=== PATIENT | female | born 1995 | race Caucasian/White ===

== ENCOUNTER 2018-06-11 14:53 | Emergency (ER) | payer OTHER ==
[~2018-06-11] VITALS: Ht 152.4 cm; Wt 77.1 kg
[2018-06-11] MEDS ORDERED: VITAMIN D250000 UNIT PO (15:29)
[2018-06-11] MEDS ORDERED: SPIRONOLACTONE100 M1 PO (15:29)
[2018-06-11 16:06] LABS: ABSOLUTE BASOPHIL COUNT 0 /CUMM (0.0-0.2); ABSOLUTE EOSINOPHIL COUNT 0 /CUMM (0.0-0.7); ABSOLUTE GRANULOCYTE CT 15.1 /CUMM (1.4-6.5); ABSOLUTE LYMPH COUNT 0.7 /CUMM (1.2-3.4); ABSOLUTE MONOCYTE COUNT 0.7 /CUMM (0.10-0.60); BASOPHIL % 0 % (0.0-2.0); EOSINOPHIL % 0 % (0-5); HEMATOCRIT 44.8 % (37-47); MEAN CORPUSCULAR HGB 29.4 PG (27.0-31.0); MEAN CORPUSCULAR HGB CONC 34.2 G/DL (33.0-37.0); MEAN CORPUSCULAR VOLUME 86.2 FL (81.0-99.0); MEAN PLATELET VOLUME 8.5 FL (7.4-10.4); PLATELET COUNT 364 /CUMM (130-400); RBC DISTRIBUTION WIDTH 12.8 % (11.5-14.5); WHITE BLOOD CELL COUNT 16.5 /CUMM (4.8-10.8)
[2018-06-11 16:10] LABS: GRANULOCYTE % 91.5 % (42.2-75.2)
--- NOTE | 2018-06-11 17:07 | CT SCAN REPORT ---
EXAMINATION: CT ABDOMEN AND PELVIS WITHOUT CONTRAST CLINICAL INFORMATION: Left flank pain. Fever. COMPARISON: None TECHNIQUE: Multidetector volumetric imaging was performed from the superior aspect of the liver through the pubic symphysis. Sagittal and coronal reformatted images were obtained on the technologist's workstation. DLP: 471 mGy-cm FINDINGS: LUNG BASES: The visualized lung bases are unremarkable. LIVER, GALLBLADDER, AND BILIARY TREE: The liver is normal in size, shape, and attenuation. No focal hepatic lesion or biliary ductal dilatation is present. The gallbladder is unremarkable with no evidence of radiopaque gallstones, gallbladder wall thickening, or obvious pericholecystic inflammatory changes. PANCREAS: Unremarkable. SPLEEN: Unremarkable. ADRENAL GLANDS: Unremarkable. KIDNEYS AND URETERS: No hydronephrosis. No renal or ureteral calculi demonstrated. Slightly malrotated right kidney, with the right hilum facing anteriorly. No suspicious renal mass. No perinephric stranding. BLADDER: Unremarkable. GASTROINTESTINAL TRACT: Bowel gas pattern is nonobstructive. No evidence of acute bowel inflammation. The appendix is unremarkable. ABDOMINAL WALL: No significant hernia is appreciated. LYMPH NODES: Normal. VASCULAR: Unremarkable. PELVIC VISCERA: No free pelvic fluid. There is a 5.7 x 3.9 cm hypodense left adnexal structure measuring simple fluid density, suspected to represent a left ovarian cyst. OSSEOUS STRUCTURES: No acute osseous abnormalities. IMPRESSION: 1. No genitourinary calculi. No hydronephrosis. 2. A 5.7 x 3.9 cm left adnexal cystic lesion. No evidence of suspicious features on this noncontrast CT scan. Consider pelvic ultrasound follow-up.
--- NOTE | 2018-06-11 19:44 | ULTRASOUND REPORT ---
EXAMINATION: US PELVIS, TRANSABDOMINAL. CLINICAL INFORMATION: Left flank pain. Fever. COMPARISON: CT abdomen pelvis 06/11/2018 TECHNIQUE: Transabdominal ultrasound performed. Patient declined endovaginal exam. FINDINGS: Uterus is normally anteverted and normal in size measuring 7.4 x 3.6 x 4.3 cm. The estimated uterine volume 60 cc. Cervical length 3 cm. Endometrial echo complex normal in thickness measuring 0.5 cm. Left ovary: There is a 5 cm relatively thin-walled anechoic cyst in the left adnexa. This is likely ovarian in etiology with a thin rim of ovarian tissue noted superiorly. Normal vascular flow is noted within left ovarian tissue in left adnexa with arterial and venous waveforms demonstrated. No evidence for torsion. No evidence for tubo-ovarian abscess. Left ovarian size is estimated at 5.5 x 4.9 x 5.1 cm, for a calculated volume of 72 mL's, including a large cyst. The right ovary is normal in appearance measuring 3.9 x 1.5 x 2.8 cm, with a calculated volume of 8.5 mL. No free fluid. IMPRESSION: 1. A large left ovarian cyst is reidentified. 2. No convincing evidence of left ovarian torsion on transabdominal exam.
[2018-06-11 20:00] VITALS: BP 114/64
--- NOTE | 2018-06-11 20:11 | ED GI/GU/ABDOMINAL COMPLAINT ---
History of Present Illness General Chief Complaint: Abdominal Pain/Flank Pain Stated Complaint: L SIDED FLANK PAIN Source: patient Exam Limitations: no limitations Vital Signs & Intake/Output Vital Signs & Intake/Output Vital Signs Date Time Temp Pulse Resp B/P B/P Pulse O2 O2 Flow FiO2 Mean Ox Delivery Rate 06/11 2000 99.2 102 18 114/64 100 Room Air 06/11 1925 Room Air 06/11 1526 101.4 126 20 138/85 98 Room Air Allergies Uncoded Allergies: Allergy Other NKA Med Allergies NKDA Reconcile Medications Ergocalciferol (Vitamin D2) (Vitamin D2) 50,000 UNIT CAPSULE 1 CAP PO QW VITAMIN SUPPORT (Reported) Spironolactone 100 MG TABLET 1 TAB PO DAILY VITAMIN SUPPORT (Reported) Triage Note: PT HERE WITH C/O LEFT FLANK X 3 DAYS. PT REPORTS BEING NAUSEOUS TODAY AND PAIN WITH URINATION. REPORTS THAT URINE IS CLOUDY. Triage Nurses Notes Reviewed? yes LMP (ages 10-50): unknown ? n Is pt currently ? No Onset: Abrupt Duration: day(s): (2), constant, continues in ED, getting worse Timing: single episode today Quality/Severity: cramping Severity Numbers: 6 Location: left flank, right flank Radiation: no radiation Activities at Onset: none Prior Abdominal Problems: none Past Sexual History: Unobtainable at this time HPI: 23-year-old female history of PCO S presents for evaluation of bilateral flank pain fever congestion sore throat and body aches. Patient reports symptoms started 2 days ago with flank pain have gradually gotten worse. The pain is located in both flanks described as cramping does not radiate. She does report she feels like the flank pain gets worse when she urinates and reports cloudy urine. No frequency or urgency no dysuria. No vaginal discharge or vaginal bleeding. No abdominal pain chest pain cough or shortness of breath. No rashes. No sick contacts or recent travel no nausea vomiting or diarrhea. She is not taking any medicine for symptoms. (Clifford Richardson) Past History Travel History Traveled to [place] past 21 day No Medical History Any Pertinent Medical History? 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 No (Clifford Richardson) Review of Systems Review of Systems Constitutional: Reports: no symptoms. EENTM: Reports: no symptoms. Respiratory: Reports: no symptoms. Cardiovascular: Reports: no symptoms. GI: Reports: see HPI, abdominal pain (flank pain). Genitourinary: Reports: see HPI. Musculoskeletal: Reports: see HPI, back pain. Skin: Reports: no symptoms. Neurological/Psychological: Reports: no symptoms. Hematologic/Endocrine: Reports: no symptoms. Immunologic/Allergic: Reports: no symptoms. All Other Systems: Reviewed and Negative (Clifford Richardson) Physical Exam Physical Exam General Appearance: well developed/nourished, no apparent distress, alert, awake Head: atraumatic, normal appearance Eyes: Bilateral: normal appearance, PERRL, EOMI. Ears, Nose, Throat, Mouth: moist mucous membrane, Tympanic normal, no tonsilar swelling erythema or exudate no lad Neck: normal inspection, supple, full range of motion Respiratory: normal breath sounds, chest non-tender, no respiratory distress, lungs clear Cardiovascular: regular rate/rhythm, normal peripheral pulses Peripheral Pulses: 2+ radial (R), 2+ radial (L) Gastrointestinal: normal bowel sounds, soft, non-tender, no organomegaly Back: normal inspection, normal range of motion, lumbar paraspinous muscles are tender bilaterally. no cvat no midline pain. no rashes Extremities: normal range of motion Neurologic/Psych: no motor/sensory deficits, awake, alert, oriented x 3, normal gait, normal mood/affect Skin: intact, normal color, warm/dry Core Measures ACS in differential dx? No Sepsis Present: No Sepsis Focused Exam Completed? No (Clifford Richardson) Progress Differential Diagnosis: appendicitis, biliary colic, cholecystitis, ectopic , gastritis, kidney stone, ovarian cyst, ovarian torsion, pancreatitis, PID/cervicitis, UTI/pyelo Plan of Care: Orders Procedure Date/time Status Add-on Test (ER Only) 06/11 2011 Active URINE 06/11 1527 Complete URINALYSIS 06/11 152 Complete LACTIC ACID 06/11 152 Complete COMPREHENSIVE METABOLIC PANEL 06/11 1527 Complete CBC WITHOUT DIFFERENTIAL 06/11 1527 Complete Laboratory Tests 06/11/18 1827: Lactic Acid Cancelled 06/11/18 1555: Anion Gap 13, Estimated GFR > 60, BUN/Creatinine Ratio 10.0, Glucose 99, Lactic Acid 0.9, Calcium 10.0, Total Bilirubin 0.9, AST 51 H, ALT 52, Alkaline Phosphatase 72, Total Protein 7.8, Albumin 4.9, Globulin 2.9, Albumin/Globulin Ratio 1.7, CBC w Diff MAN DIFF ORDERED, RBC 5.20, MCV 86.2, MCH 29.4, MCHC 34.2, RDW 12.8, MPV 8.5, Gran % 91.5 H, Lymphocytes % 4.1 L, Monocytes % 4.4, Eosinophils % 0, Basophils % 0, Absolute Granulocytes 15.1 H, Segmented Neutrophils 90 H, Absolute Lymphocytes 0.7 L, Lymphocytes 2 L, Monocytes 7, Absolute Monocytes 0.7 H, Absolute Eosinophils 0, Basophils 1, Absolute Basophils 0, Platelet Estimate VERIFIED BY SMEAR, Normocytic RBCs VERIFIED, Normochromic RBCs VERIFIED, Fld Total RBCs Counted 100 06/11/18 1550: Urine Color YEL, Urine Clarity CLEAR, Urine pH 7.0, Ur Specific [place] 1.010, Urine Protein NEG, Urine Ketones NEG, Urine Nitrite NEG, Urine Bilirubin NEG, Urine Urobilinogen 0.2, Ur Leukocyte Esterase NEG, Ur Microscopic EXAM NOT REQUIRED, Urine Hemoglobin NEG, Urine Glucose NEG, Urine Test NEGATIVE Patient is here for evaluation of fever back pain and flank pain. She also reports nasal congestion rhinorrhea and sore throat. On initial evaluation she does have a fever of 101. She is slightly tachycardic. She denies any chest pain or shortness of breath her abdomen is soft and nontender. There is no signs of infection in her throat. She does have lumbar paraspinal tenderness. Labs were ordered patient was given fluids and ibuprofen. Urine is not showing any signs of infection. Patient does have a white blood cell count of 16.5. CT scan of the abdomen and pelvis shows left-sided ovarian fullness. An ultrasound was ordered to rule out tubo-ovarian abscess this was negative. There is no definitive evidence of bacterial infection on exam. She denies a cough her lungs are clear nothing to suggest pneumonia no signs of cellulitis. No bacterial upper respiratory infection. No urine infection. Suspect this may be a viral syndrome. Advised symptomatic treatment at this time. Tylenol ibuprofen for pain drink plenty of fluids. Discussed return precautions in detail including signs of bacterial infection. Return immediately with worsening pain nausea vomiting lethargy change in mental status or any other concerns. Follow-up with the primary care doctor in the next few days. Patient and family agree with the plan Diagnostic Imaging: Viewed by Me: CT Scan, Ultrasound. Discussed w/RAD: CT Scan, Ultrasound. Radiology Impression: PATIENT: JUAN LUIS WHITESIDE PRESENT AGE: 23 PATIENT ACCOUNT NO: [id number] : 95 LOCATION: [facility] ORDERING PHYSICIAN: Clifford PENN SERVICE DATE: 06/11/18 EXAM TYPE: US - US-TRANSVAGINAL EXAMINATION: US PELVIS, TRANSABDOMINAL. CLINICAL INFORMATION: Left flank pain. Fever. COMPARISON: CT abdomen pelvis 06/11/2018 TECHNIQUE: Transabdominal ultrasound performed. Patient declined endovaginal exam. FINDINGS : Uterus is normally anteverted and normal in size measuring 7.4 x 3.6 x 4.3 cm. The estimated uterine volume 60 cc. Cervical length 3 cm. Endometrial echo complex normal in thickness measuring 0.5 cm. Left ovary: There is a 5 cm relatively thin-walled anechoic cyst in the left adnexa. This is likely ovarian in etiology with a thin rim of ovarian tissue noted superiorly. Normal vascular flow is noted within left ovarian tissue in left adnexa with arterial and venous waveforms demonstrated. No evidence for torsion. No evidence for tubo-ovarian abscess. Left ovarian size is estimated at 5.5 x 4.9 x 5.1 cm, for a calculated volume of 72 mL's, including a large cyst. The right ovary is normal in appearance measuring 3.9 x 1.5 x 2.8 cm, with a calculated volume of 8.5 mL. No free fluid. IMPRESSION: 1. A large left ovarian cyst is reidentified. 2. No convincing evidence of left ovarian torsion on transabdominal exam. DICTATED BY: Vivek Cam MD DATE/TIME DICTATED:06/11/181935 CUTTING MACHINE TENDER HELPER:PAT DATE/TIME TRANSCRIBED:06/11/181935 CONFIDENTIAL, DO NOT COPY WITHOUT APPROPRIATE AUTHORIZATION. <Electronically signed in Other Vendor System> SIGNED BY: Vivek Cam MD 06/11/181943, PATIENT: JUAN LUIS WHITESIDE PRESENT AGE: 23 PATIENT ACCOUNT NO: [id number] : 95 LOCATION: [facility] ORDERING PHYSICIAN: Clifford PENN SERVICE DATE: 06/11/18 EXAM TYPE: CAT - CT ABD & PELVIS W/O IV CONTRAS EXAMINATION: CT ABDOMEN AND PELVIS WITHOUT CONTRAST CLINICAL INFORMATION: Left flank pain. Fever. COMPARISON : None TECHNIQUE: Multidetector volumetric imaging was performed from the superior aspect of the liver through the pubic symphysis. Sagittal and coronal reformatted images were obtained on the technologist's workstation. DLP: 471 mGy -cm FINDINGS: LUNG BASES: The visualized lung bases are unremarkable. LIVER, GALLBLADDER, AND BILIARY TREE: The liver is normal in size, shape, and attenuation. No focal hepatic lesion or biliary ductal dilatation is present. The gallbladder is unremarkable with no evidence of radiopaque gallstones, gallbladder wall thickening, or obvious pericholecystic inflammatory changes. PANCREAS: Unremarkable. SPLEEN: Unremarkable. ADRENAL GLANDS: Unremarkable. KIDNEYS AND URETERS: No hydronephrosis. No renal or ureteral calculi demonstrated. Slightly malrotated right kidney, with the right hilum facing anteriorly. No suspicious renal mass. No perinephric stranding. BLADDER: Unremarkable. GASTROINTESTINAL TRACT: Bowel gas pattern is nonobstructive. No evidence of acute bowel inflammation. The appendix is unremarkable. ABDOMINAL WALL: No significant hernia is appreciated. LYMPH NODES: Normal. VASCULAR: Unremarkable. PELVIC VISCERA: No free pelvic fluid. There is a 5.7 x 3.9 cm hypodense left adnexal structure measuring simple fluid density, suspected to represent a left ovarian cyst. OSSEOUS STRUCTURES: No acute osseous abnormalities. IMPRESSION: 1. No genitourinary calculi. No hydronephrosis. 2. A 5.7 x 3.9 cm left adnexal cystic lesion. No evidence of suspicious features on this noncontrast CT scan. Consider pelvic ultrasound follow-up. DICTATED BY: Alex Tee MD DATE/TIME DICTATED:06/11/181654 CUTTING MACHINE TENDER HELPER:PAT DATE/TIME TRANSCRIBED:06/11/181654 CONFIDENTIAL, DO NOT COPY WITHOUT APPROPRIATE AUTHORIZATION. <Electronically signed in Other Vendor System> SIGNED BY: Alex Tee MD 06/11/18 3032 Initial ED EKG: none (Clifford Richardson) Departure Departure Disposition: HOME OR SELF CARE Condition: Stable Clinical Impression Primary Impression: Flank pain Referrals: Maliha Hathaway (PCP/Family) Additional Instructions: Rest and drink plenty of fluids. Alternate between Tylenol 1000MG and ibuprofen 600MG every 6 hours. Make a follow-up with your primary care doctor this week for recheck. Monitor your symptoms closely return with worsening pain persistent high fevers coughing rashes nausea vomiting diarrhea or any other concerns. Departure Forms: Customer Survey General Discharge Information (Clifford Richardson) PA/WATERPROOF MATERIAL FOLDER Co-Sign Statement Statement: ED Attending supervision documentation- I saw and evaluated the patient. I have also reviewed all the pertinent lab results and diagnostic results. I agree with the findings and the plan of care as documented in the PA's/WATERPROOF MATERIAL FOLDER's documentation. x I have reviewed the ED Record and agree with the PA's/WATERPROOF MATERIAL FOLDER's documentation. [] Additions or exceptions (if any) to the PAs/WATERPROOF MATERIAL FOLDER's note and plan are summarized below: [] (Michelet BRYAN,Efra) ED Attending Observation Initial Observation Note: I have seen and personally examined JUAN LUIS WHITESIDE on 06/11/18 at 2008. I agree with the current emergency department documentation. The disposition (admission or discharge) is uncertain at this time, she needs a period of observation for the following reason(s): The ED Nurse caring for this patient has been personally informed as to what the patient is being observed for. (Clifford Richardson)
== END 2018-06-11 20:20 ==
LOC: ERH 14:53
PROVIDERS: Physician Assistant Medical
DX: R10.32 Left lower quadrant pain (principal); R10.31 Right lower quadrant pain; E28.2 Polycystic ovarian syndrome
CPT/HCPCS: 74176; 81003; 81025; 87086; 96374; 96375; J1885; J2405